=== PATIENT | female | born 1935 | race African-American/Black ===

== ENCOUNTER 2019-01-23 22:22 | Emergency (ER) | payer MEDICARE, BC ==
[2019-01-24] MEDS ORDERED: ACETAMINOPHEN 325 MG TABLET PO ONE (02:37)
[2019-01-24] MEDS ORDERED: CYCLOBENZAPRINE HCL 10 MG TABLET PO ONE (02:37)
--- NOTE | 2019-01-24 02:44 | ER Document Report ---
ED Fall - General Chief Complaint: Back Injury Stated Complaint: FALL Time Seen by Provider: 01/24/19 01:43 Mode of Arrival: Ambulatory Information source: Patient TRAVEL OUTSIDE OF THE [place] IN LAST 30 DAYS: No - HPI Occurred: Yesterday Where: Public place Context: Tripped Associated symptoms: None Location of injury/pain: Buttocks Quality of pain: Achy, Dull Severity: Mild Pain Level: 1 - Related data Allergies/Adverse Reactions: No Known Allergies Allergy (Unverified 01/24/19 03:37) Past Medical History - Social History Smoking Status: Never Smoker Family History: Reviewed & Not Pertinent Patient has suicidal ideation: No Patient has homicidal ideation: No - Past Medical History Cardiac Medical History: Reports: Hx Hypercholesterolemia, Hx Hypertension Renal/ Medical History: Denies: Hx Peritoneal Dialysis GI Medical History: Reports: Hx Gastroesophageal Reflux Disease Past Surgical History: Reports: Hx Orthopedic Surgery - rt hip surg Review of Systems - Review of Systems Constitutional: No symptoms reported EENT: No symptoms reported Cardiovascular: No symptoms reported Respiratory: No symptoms reported Gastrointestinal: No symptoms reported Genitourinary: No symptoms reported Female Genitourinary: No symptoms reported Musculoskeletal: Muscle pain Skin: No symptoms reported Hematologic/Lymphatic: No symptoms reported Neurological/Psychological: No symptoms reported -: Yes All other systems reviewed and negative Physical Exam - Vital signs Vitals: Temp Pulse Resp BP Pulse Ox 97.9 F 72 18 179/81 H 97 01/23/19 23:36 01/23/19 23:36 01/23/19 23:36 01/23/19 23:36 01/23/19 23:36 Interpretation: Normal - General General appearance: Appears well, Alert In distress: None Notes: Patient was able to get out of bed unassisted and walk around in the ED without assistance. - HEENT Head: Normocephalic, Atraumatic Eyes: Normal Pupils: PERRL - Respiratory Respiratory status: No respiratory distress Chest status: Nontender Breath sounds: Normal Chest palpation: Normal - Cardiovascular Rhythm: Regular Heart sounds: Normal auscultation Murmur: No - Abdominal Inspection: Normal Distension: No distension Bowel sounds: Normal Tenderness: Nontender Organomegaly: No organomegaly - Back Back: Normal, Nontender - Extremities General upper extremity: Normal inspection, Nontender, Normal color, Normal ROM, Normal temperature General lower extremity: Normal inspection, Nontender, Normal color, Normal ROM, Normal temperature, Normal weight bearing. No: Sandra's sign - Neurological Neuro grossly intact: Yes Cognition: Normal Orientation: AAOx4 [place] Coma Scale Eye Opening: Spontaneous Haritha Coma Scale Verbal: Oriented Haritha Coma Scale Motor: Obeys Commands Haritha Coma Scale Total: 15 Speech: Normal Motor strength normal: LUE, RUE, LLE, RLE Sensory: Normal - Psychological Associated symptoms: Normal affect, Normal mood - Skin Skin Temperature: Warm Skin Moisture: Dry Skin Color: Normal Course - Re-evaluation Re-evalutation: 01/24/19 02:40 Patient refused x-ray of her back. She prefers to be discharged home. - Vital Signs Vital signs: Temp Pulse Resp BP Pulse Ox 98.0 F 69 18 141/65 H 100 01/24/19 03:06 01/24/19 03:06 01/24/19 03:06 01/24/19 03:06 01/24/19 03:06 Discharge - Discharge Clinical Impression: Contusion of lower back Qualifiers: Encounter type: initial encounter Qualified Code(s): S30.0XXA - Contusion of lower back and pelvis, initial encounter Fall Qualifiers: Encounter type: initial encounter Qualified Code(s): W19.XXXA - Unspecified fall, initial encounter Condition: Stable Disposition: HOME, SELF-CARE Instructions: Contusion ([facility]) Additional Instructions: Please follow-up with your primary doctor tomorrow morning. Return to the emergency room if your condition worsens. Prescriptions: Acetaminophen [Tylenol 8 Hour] 650 mg PO Q8H PRN #20 tablet.er PRN Reason: Pain Scale Of 3 Cyclobenzaprine HCl [Flexeril 10 mg Tablet] 10 mg PO BID PRN #10 tablet PRN Reason: Pain Scale Of 3
[2019-01-24 03:37] VITALS: BP 141/65
== END 2019-01-24 03:37 | disposition home or self-care (01) ==
LOC: ER 22:22
DX: S30.0XXA Contusion of lower back and pelvis, initial encounter (principal); W19.XXXA Unspecified fall, initial encounter; I10 Essential (primary) hypertension
CPT/HCPCS: 99283; A9270 ×2